=== PATIENT | female | born 1940 | race Caucasian/White ===

== ENCOUNTER → 2017-01-04 | Outpatient (CLI) | payer MEDICARE, OTHER ==
[~2017-01-04] MED LIST: AMLO10TA4 PO; BYSTOLIC2.5 MG PO; CALC600T11 PO; ESOM40CA PO; ESOM40CA25 PO; FLUT1DIS IH; FLUT1DIS3 IH; FOLI1TAB16 PO; IOHEXOL 180 MG/ML 10 ML VIAL. ONE; ISOS60TA2 PO; LIDO700A4 TP; LOSA100T6 PO; MELO15TA6 PO; PANT40TA5 PO; PROVENTIL HFA6.7 GM IH; SELE100T PO; VALS1TAB3 PO; VALS80TA3 PO; methylPREDNISolone ACETATE 40 MG/ML VIAL. ONE; methylPREDNISolone ACETATE 80 MG/ML VIAL. ONE
--- NOTE | 2017-01-05 01:35 | PN ---
DATE: 01/04/2017 DIAGNOSES: 1. Lumbar radiculopathy with lumbar degenerative disk disease. 2. Cervical radiculopathy with cervical degenerative disk disease. HISTORY OF PRESENT ILLNESS: The patient is a 76-year-old female who returns for followup, last seen on 08/23/2016. The patient has undergone 2 cervical epidural steroid injection, did very well with these, with about 50%-60% improvement. The patient reports that the pain in her neck is very tolerable at this point, her main complaint now is her low back pain. She has had this for some years, but has been getting much worse in the left leg with radiation into the anterior lateral thigh, posterior back, into the posterior gluteus, lateral gluteus, lateral thigh, medial lower leg into the area of the medial knee on the left side, mostly up in the anterior thigh and posterior low back. The patient reports it is 7-8 on a scale of 10 and describes it as "exhausting pain." The patient reports some dull aching, radiating, shooting pain in the left leg, worse with walking and standing, occasionally worse with sitting as well, but generally not awaken her from sleep at night. The patient had a recent abdominal CT to follow up on previous renal carcinoma, which was clear, but did diagnose some diverticulosis and patient has been taking antibiotics for this, finished this now, but had some significant diarrhea with the antibiotics. She is following up with her primary care physician who also encouraged her to consult or have a referral for a hr administrative assistant and this is long-term if she desires. The patient reports otherwise no new motor or sensory deficits, no new bowel or bladder incontinence or other complaints. PHYSICAL EXAMINATION: VITAL SIGNS: The patient's blood pressure is 140/68, pulse is 68, respirations 18, temperature 99.0 degrees Fahrenheit, height is 5 feet 2 inches, and weight is 182 pounds. GENERAL: The patient is awake, alert, oriented, appropriate, very pleasant demeanor. HEENT: Head shows normocephalic and atraumatic. Extraocular movements are intact and symmetrical. Oral cavity shows mucous membranes moist and pink. Dentition is intact. NECK: Shows anterior throat supple without palpable lymphadenopathy noted. Swallow reflex is symmetrical. Neck shows full rotational motion of cervical spine, both laterally greater than 45 degrees with full extension, full flexion without pain reported. CHEST: Shows normal on inspection. Breath sounds are clear to auscultation bilaterally. HEART: Shows S1 and S2 clear. No murmurs are auscultated. ABDOMEN: Obese, soft, nontender, and nondistended. No palpable organomegaly is noted. No rebound or guarding demonstrated. BACK: Shows spine grossly in midline, slight exaggeration of thoracic kyphosis and mild flattening of lumbar lordotic curvature. No previous bruises, lesions, rashes or scars are noted in the lumbar distribution. Paraspinous musculature shows symmetrical in appearance. With palpation, this is firm, some moderate tenderness with palpation, but only diffusely in the lower lumbar distribution. No tenderness over the spinous processes. No tenderness over the sacrum or sacroiliac regions. The patient shows good rotational motion of the lumbar spine, both laterally as well as extension and flexion without significant increase in pain. EXTREMITIES: Lower extremities show deep tendon reflexes 1+ in the patellar and tendo calcaneus tendons. Motor exam is strong with 5/5 dorsiflexion, extension and 4/5 with left quadriceps and hamstring flexion with 5/5 on the right. Peripheral pulses are 1+ posterior tibial and dorsalis pedis pulses. No peripheral edema is noted. Options were discussed with the patient and the patient's old chart was reviewed as her current medication regimen updated. Current review of systems updated today as well. We will proceed with a lumbar epidural steroid injection today with fluoroscopic guidance. Risks were again discussed including, but not limited to bleeding, infection, possibility of epidural hematoma, subsequent neurologic compromise, dural puncture, headaches, spinal cord and/or nerve damage, side effects of steroid medication and poor results regarding pain control. The patient understands and wishes to proceed. The patient will return to clinic in approximately 2 weeks for followup, counseled on return appointment, activity level and side effects to be aware of. Also, ____ patient is to ____ hr administrative assistant for her recent diverticulosis diagnosis and she will look into this and check with her primary physician for referral well. DIAGNOSIS: Lumbar radiculopathy with lumbar degenerative disease. PROCEDURE: Lumbar epidural steroid injection in translaminar approach at L4-L5 level using sterile fluoroscopic guidance and local anesthetic using a sterile prep and drape. MEDICATIONS INJECTED: Depo-Medrol 120 mg plus 10 mL of preservative-free normal saline and 2 mL of Isovue for contrast. The patient's condition on discharge is stable. The patient tolerated procedure well, had no complications. SHAYAN CHING MD DR: CE/reji JOB#: [id number] / [id number]
== END | disposition home or self-care (01) ==
LOC: PNCL 09:19
PROVIDERS: ATTEND Anesthesiology
DX: M51.16 Intervertebral disc disorders with radiculopathy, lumbar region (principal); M50.10 Cervical disc disorder with radiculopathy, unspecified cervical region
CPT/HCPCS: 62323; J1030; J1040; 62327

== ENCOUNTER → 2017-04-18 | Outpatient (CLI) | payer MEDICARE, OTHER ==
[~2017-04-18] MED LIST changes: -CALC600T11 PO; +CALC600T23 PO
--- NOTE | 2017-04-19 05:42 | PN ---
DATE: 04/18/2017 PROGRESS NOTE FOR PAIN CLINIC DIAGNOSES: 1. Cervical radiculopathy with cervical degenerative disk disease. 2. Lumbar radiculopathy with lumbar degenerative disk disease. HISTORY OF PRESENT ILLNESS: The patient is a 76-year-old female who returns for followup status post lumbar epidural steroid injection x 1 on 01/04/2017. The patient reports that she did fairly well, but only for a limited time about 2 weeks. The pain returned significantly in the low back and into the left posterior gluteus and lateral anterior thigh and groin on the left side. The patient reports her main complaint, however, is her neck and left upper back and shoulder. The patient has done well with cervical epidural steroid injections in the past and we had discussed this last time. The patient returns reporting significant pain in this region rated an 8 on a scale of 10 at its worst, is a 5 at its least. It is aching, tight and constant, becoming more and more noticeable with activities, but she was using her upper extremities, reaching above her head or any repetitive motions with her arms or shoulders. The patient reports no new motor or sensory deficits, no new bowel or bladder incontinence, but still significant pain is noted. PHYSICAL EXAMINATION: VITAL SIGNS: The patient's blood pressure is 142/66, pulse 57, respirations are 18, temperature is 97.5 degrees Fahrenheit, height is 5 feet 2 inches, weight is 183 pounds. GENERAL: The patient is awake, alert, oriented, appropriate, has a very pleasant demeanor. HEENT: Head shows normocephalic, atraumatic. Extraocular movements are intact, symmetrical. Oral cavity has mucous membranes moist and pink. Dentition is intact. NECK: Shows anterior throat supple without palpable lymphadenopathy noted. Swallow reflex is symmetrical. CHEST: Shows normal on inspection. Breath sounds are clear to auscultation bilaterally. HEART: Shows S1 and S2 clear. ABDOMEN: Soft, nontender, nondistended. No palpable organomegaly is noted. No rebound or guarding demonstrated. BACK: Shows spine grossly in the midline. Cervical paraspinous muscle shows symmetrical on inspection with moderate tenderness to palpation bilaterally in the cervical paraspinous musculature without radiation. This is superior, medial and lateral trapezius, more on the left than the right, but without specific trigger points or radiation, but just diffuse tenderness in the musculature. The patient's low back shows some moderate tenderness with palpation in the middle and lower distribution, but shows good rotational motion without significant pain with mild pain with extension of the lumbar spine, but not with forward flexion, right and left lateral rotation. EXTREMITIES: Upper extremities showed deep tendon reflexes at 2+ in the biceps and triceps tendons. Motor exam is strong with liner machine operator helper strength rated at 5/5 at his biceps and triceps flexion. Lower extremities showed deep tendon reflexes 1+ in the patellar and tendo calcaneus tendons. Motor exam is 5/5 at the ankles and 4/5 with the left quadriceps and 5/5 on the right. PLAN: Options were discussed with the patient and the patient's old chart was reviewed as her current medication regimen and updated. Current review of systems updated today as well. We will proceed with a cervical epidural steroid injection today with fluoroscopic guidance. Risks were again discussed including, but not limited to bleeding, infection, possibility of epidural hematoma, subsequent neurologic compromise, dural puncture, headaches, spinal cord and/or nerve damage, side effects of steroid medication and poor results regarding pain control. The patient understands and wishes to proceed. The patient will return to clinic in approximately 2 weeks for followup, was counseled on return appointment, activity level and side effects to be aware of. DIAGNOSES: Cervical radiculopathy with cervical degenerative disk disease. PROCEDURE: Cervical epidural steroid injection in translaminar approach at C6-C7 using C-arm fluoroscopic guidance under sterile prep and drape using a local anesthetic. Medications injected is 120 mg Depo-Medrol plus 5 mL of preservative-free normal saline and 2 mL Isovue for contrast. CONDITION AT DISCHARGE: Stable. The patient tolerated the procedure well, had no complications. SHAYAN CHING MD DR: CE/reji JOB#: [id number] / [id number]
== END | disposition home or self-care (01) ==
LOC: PNCL 10:10
PROVIDERS: ATTEND Anesthesiology
DX: M50.123 Cervical disc disorder at C6-C7 level with radiculopathy (principal); M51.16 Intervertebral disc disorders with radiculopathy, lumbar region; Z82.49 Family history of ischemic heart disease and other diseases of the circulatory system
CPT/HCPCS: 62321; J1030; J1040

== ENCOUNTER → 2017-06-30 | Outpatient (CLI) | payer MEDICARE, OTHER ==
[~2017-06-30] MED LIST changes: +GADOBUTROL 7.5 MMOL/7.5 ML VIAL IV ONE; -IOHEXOL 180 MG/ML 10 ML VIAL. ONE; -methylPREDNISolone ACETATE 40 MG/ML VIAL. ONE; -methylPREDNISolone ACETATE 80 MG/ML VIAL. ONE
--- NOTE | 2017-06-30 13:19 | RAD ---
MRI of the abdomen and pelvis without and with contrast 06/30/2017 Clinical history: History of left renal cell carcinoma post surgical removal. Possible pancreatic lesion seen on recent CT scan. Technique: Unenhanced T2-weighted axial, and fat-saturated T2-weighted axial and coronal and in and out of phase T1-weighted axial and coronal images of the abdomen were obtained. T1-weighted coronal axial and sagittal and fat saturated T2-weighted coronal and axial images of the pelvis were obtained. After the intravenous administration of 7.5 cc of Gadavist, enhanced fat saturated T1-weighted axial and coronal images of the abdomen and pelvis were obtained. Findings: Comparison is made to patient's CT scan of the abdomen and pelvis performed at [facility] on 06/24/2017. Several rounded high signal intensity lesions are seen involving predominantly the left lobe of the liver on the T2-weighted images. They measure 2 to 3 mm in size. There are consistent with hepatic cysts. The spleen and adrenal glands are within normal limits. A 6 mm rounded high signal intensity lesion is seen involving the lower pole right kidney on the T2-weighted images. This likely represents a cyst. The patient is post resection of a portion of the lateral aspect of the left kidney. No recurrent/residual mass is seen. The pancreas is within normal limits. No significant focal abnormality of the pancreas is seen. The low-attenuation lesions in the patient's CT scan likely represent small areas of focal fatty replacement. The abdominal aorta is ectatic. A hernia is seen along the left lateral anterior abdominal wall, unchanged. The gallbladder is well-distended. No free fluid is seen within the abdomen. There is no evidence of bowel obstruction. The urinary bladder is distended with urine. The uterus is within normal limits. Multiple diverticula are seen along the sigmoid colon. No free fluid is seen. No pelvic or inguinal lymphadenopathy is seen. Mild S-shaped curvature of the thoracolumbar spine is seen. No area of abnormal contrast enhancement is seen. Impression: 1. No recurrent mass is seen within the left kidney. 2. No significant abnormality is seen involving the pancreas. The low-attenuation lesions seen on the patient's recent CT scan involving the pancreas are felt to most likely represent areas of fatty infiltration. 3. No acute abnormality is seen involving the pelvis.
== END | disposition home or self-care (01) ==
LOC: MRI 07:42
PROVIDERS: ATTEND General Practice
DX: K86.9 Disease of pancreas, unspecified (principal); K45.8 Other specified abdominal hernia without obstruction or gangrene
CPT/HCPCS: 72197; 74183; A9585

== ENCOUNTER → 2017-10-19 | Outpatient (CLI) | payer MEDICARE, OTHER ==
[~2017-10-19] MED LIST changes: -GADOBUTROL 7.5 MMOL/7.5 ML VIAL IV ONE; +IOHEXOL 180 MG/ML 10 ML VIAL. ONE; +MELO7.5T29 PO; +methylPREDNISolone ACETATE 40 MG/ML VIAL. ONE; +methylPREDNISolone ACETATE 80 MG/ML VIAL. ONE
--- NOTE | 2017-10-19 18:41 | PAIN ---
DATE OF SERVICE: 10/19/2017 DIAGNOSES: 1. Lumbar radiculopathy with lumbar degenerative disk disease. 2. Cervical radiculopathy with cervical degenerative disk disease. HISTORY OF PRESENT ILLNESS: The patient is a 77-year-old female who returns for a followup, last seen on 04/18/2017, had a cervical epidural steroid injection and lumbar epidural steroid injection prior to that in December of this year. The patient did very well with each of these, reports about 75% improvement overall. Pain is beginning to return now in her low back and into her left leg, but only to a moderate extent. The patient reports it has been increasing gradually over time, not a result of any specific new injury or action that she is aware of, but has becoming more noticeable across the low back, into the posterior gluteus bilaterally, posterior thighs and left posterior thigh and posterior calf on occasion; worse with walking, standing, changing positions; better with sitting or lying down, but awakens her from sleep occasionally, but not every night. She usually sleeps about 8 hours at a time without difficulty, sometimes longer. The patient reports the pain is at 8 on a scale of 10 in her low back and left leg, is a 7 on average and a 3-4 at its least and is a 5 today. The patient reports it is aching, tight, becoming more shooting, dull, radiating; again worse with walking, standing, changing positions; better with sitting or lying down. The patient reports no new motor or sensory deficits. The patient's neck and upper shoulder is doing much better since her injection back in March of this year and reports that it is doing quite well. The patient reports no other complaints, no new motor or sensory deficits, bowel or bladder incontinence. PHYSICAL EXAMINATION: VITAL SIGNS: The patient's blood pressure 151/69, pulse 63, respirations are 16, temperature is 97.9 degrees Fahrenheit. She is 5 feet 2 inches, weighs 187 pounds. GENERAL: The patient is awake, alert, oriented, appropriate, very pleasant demeanor. HEENT: Shows normocephalic, atraumatic. Extraocular muscles are intact and symmetrical. Oral cavity shows mucous membranes moist and pink. Dentition is intact. NECK: Shows anterior throat supple without palpable lymphadenopathy noted. Swallow reflex is symmetrical. CHEST: Normal with inspection. Breath sounds clear to auscultation bilaterally. HEART: Shows S1, S2 clear. No murmurs auscultated. ABDOMEN: Obese, but soft, nontender, nondistended. No palpable organomegaly is noted. No rebound or guarding demonstrated. MUSCULOSKELETAL: Back shows spine grossly in the midline. Normal appearing thoracic kyphosis and some mild flattening of the lumbar lordotic curvature. Lumbar paraspinous muscle shows symmetrical on inspection. No difficulty with palpation in the upper aspect, lower aspect is moderately tender with palpation bilaterally in the lumbar paraspinous muscles, slightly worse on the left than the right. No tenderness over the sacrum or sacroiliac regions. Lower extremities show deep tendon reflexes at 1+ in the patellar and tendo-calcaneus tendons and are equal. Motor exam is strong with approximately 4 on a scale of 5 with dorsiflexion, extension on the left and 5/5 on the right. Peripheral pulses are 1+, posterior tibial. No peripheral edema is noted. No clubbing or cyanosis bilaterally. PLAN: Options were discussed with the patient. The patient's old chart was reviewed as her current medication regimen and updated. Current review of systems updated today as well. We will proceed with a lumbar epidural steroid injection today; it is the first in this series with fluoroscopic guidance. Risks were again discussed including, but not limited to bleeding, infection, possibility of epidural hematoma and subsequent neurological compromise, dural puncture headaches, spinal cord and/or nerve damage, side effects of steroid medication and poor results regarding pain control. The patient understands and wished to proceed. The patient to return to the clinic in approximately 2 weeks for a followup, was counseled on return appointment, activity level and side effects to be aware of. DIAGNOSES: 1. Lumbar radiculopathy with lumbar degenerative disk disease. 2. Cervical radiculopathy with cervical degenerative disk disease. PROCEDURE: Lumbar epidural steroid injection, translaminar approach, L4-L5 level using C-arm fluoroscopic guidance under sterile prep and drape using local anesthetic. MEDICATIONS INJECTED: A total of 120 mg of Depo-Medrol plus 10 mL of preservative-free normal saline and 2 mL of Isovue for contrast. CONDITION AT DISCHARGE: Stable. The patient tolerated the procedure well, had no complications. SHAYAN CHING MD DR: CE/reji JOB#: [id number] / [id number]
== END | disposition home or self-care (01) ==
LOC: PNCL 09:37
PROVIDERS: ATTEND Anesthesiology
DX: M51.16 Intervertebral disc disorders with radiculopathy, lumbar region (principal); M50.10 Cervical disc disorder with radiculopathy, unspecified cervical region
CPT/HCPCS: 62323; J1030; J1040

== ENCOUNTER → 2018-10-17 | Outpatient (CLI) | payer MEDICARE, OTHER ==
[~2018-10-17] MED LIST changes: +LOSA100T14 PO; -LOSA100T6 PO
--- NOTE | 2018-10-17 13:33 | PAIN ---
DATE OF SERVICE: 10/17/2018 PROGRESS NOTE FOR PAIN CLINIC DIAGNOSES: 1. Lumbar radiculopathy with lumbar degenerative disk disease. 2. Cervical radiculopathy with cervical degenerative disk disease. HISTORY OF PRESENT ILLNESS: The patient is a 78-year-old female who returns for followup status post lumbar epidural steroid injection x 1 on 07/10/2018. The patient did quite well with this with about a 60% improvement until about 2 weeks ago. The patient reports the pain began to return, was increased in the low back into the left greater than right lower extremity, mostly in the posterior gluteus, posterior thigh, lateral thigh, lateral anterior thigh, medial thigh, medial knee on the left side, worse with walking, standing, changing positions, worse with activity. Initially, she was increasing her activity with greater ease and comfort, walking greater distances, doing work activities, household activities, sleeping well at night. The patient reports it is beginning to awaken her from sleep occasionally, but not every night. The patient reports the pain is aching, tight across the low back into the posterior left lower extremity and hip as described. The patient reports it is a 9 on a scale of 10 at its worst and average, at 8 on its least and is a 9 today. The patient reports no new motor or sensory deficits, no new bowel or bladder incontinence or other complaints. PHYSICAL EXAMINATION: VITAL SIGNS: The patient's blood pressure is 161/76, pulse 66, respirations 18, temperature 98.1 degrees Fahrenheit, height is 5 feet 2 inches, weight is 192 pounds. GENERAL: The patient is awake, alert, oriented, appropriate, very pleasant demeanor. HEENT: Head shows normocephalic, atraumatic. Extraocular movements are intact and symmetrical. Oral cavity: Mucous membranes are moist and pink. Dentition is intact. NECK: Shows anterior throat supple without palpable lymphadenopathy noted. Swallow reflex is symmetrical. CHEST: Shows normal on inspection. Breath sounds are clear to auscultation bilaterally. HEART: Shows S1, S2 clear. No murmurs auscultated. ABDOMEN: Soft, nontender, nondistended. No palpable organomegaly is noted. No rebound or guarding demonstrated. BACK: Shows spine grossly in the midline. Normal appearing thoracic kyphosis and some minor flattening of lumbar lordotic curvature. Lumbar paraspinous muscle shows symmetrical on inspection, on palpation shows some moderate tenderness bilaterally, but only diffusely without radiation. EXTREMITIES: Lower extremities show deep tendon reflexes 1+ in the patellar and tendo-calcaneus tendons. Motor exam is approximately 4 on a scale of 5 on the left with dorsiflexion and extension, and 5/5 on the right, but equal and symmetrical right and left sides with quadriceps and hamstring flexion. Peripheral pulses are 1+ posterior tibia. No peripheral edema is noted bilaterally. Options were discussed with the patient. The patient's old chart was reviewed as her current medication regimen updated. Current review of systems updated today as well. We will proceed with a second in the series of lumbar epidural steroid injection today with fluoroscopic guidance. Risks were again discussed including, but not limited to bleeding, infection, possibility of epidural hematoma, subsequent neurological compromise, dural puncture, headaches, spinal cord and/or nerve damage, side effects of steroid medication and poor results regarding pain control. The patient understands and wished to proceed. The patient will return to clinic in approximately 2 weeks for followup, was counseled on return appointment, activity level and side effects to be aware of. DIAGNOSIS: Lumbar radiculopathy with lumbar degenerative disk disease. PROCEDURE: Lumbar epidural steroid injection in translaminar approach at L4-L5 level using C-arm fluoroscopic guidance under sterile prep and drape using local anesthetic. MEDICATION INJECTED: A total of 120 mg Depo-Medrol plus 10 mL of preservative-free normal saline and 2 mL of Isovue for contrast. CONDITION AT DISCHARGE: Stable. The patient tolerated the procedure well, had no complications. SHAYAN CHING MD DR: CE/reji JOB#: [id number] / [id number]
== END ==
LOC: PNCL 10:37
PROVIDERS: ATTEND Anesthesiology
DX: M51.16 Intervertebral disc disorders with radiculopathy, lumbar region (principal); M50.10 Cervical disc disorder with radiculopathy, unspecified cervical region
CPT/HCPCS: 62323; J1030; J1040; Q9965

== ENCOUNTER → 2018-11-06 | Outpatient (CLI) | payer MEDICARE, OTHER ==
[~2018-11-06] MED LIST changes: +ALBU2.5V8 IH; -IOHEXOL 180 MG/ML 10 ML VIAL. ONE; +LOSA-73 PO; +NAPR220C4 PO; -PROVENTIL HFA6.7 GM IH; -methylPREDNISolone ACETATE 40 MG/ML VIAL. ONE; -methylPREDNISolone ACETATE 80 MG/ML VIAL. ONE
--- NOTE | 2018-11-06 23:27 | PAIN ---
DATE OF SERVICE: 11/06/2018 PROGRESS NOTE FOR PAIN CLINIC DIAGNOSES: 1. Cervical radiculopathy with cervical degenerative disk disease. 2. Lumbar radiculopathy with lumbar degenerative disk disease. HISTORY OF PRESENT ILLNESS: The patient is a 78-year-old female who returns for followup status post lumbar epidural steroid injection x 2, on 07/10 and then on 10/17/2018. The patient did very well with about a 70% improvement. Reports still 70% improvement in the low back and left lower extremity. The patient reports the pain in her leg is not completely gone, just some pain across the low back, which she reports is very tolerable. The patient reports she is increasing her activity, greater distance walking, able to return to activities at home as well as household activities and traveling with much greater ease and comfort. The patient is sleeping well at night, does not awaken her from sleep at night. The patient reports her pain is 0-1 at its worst, average and at its least is a 0 and is a 0 today. The patient reports much better with sitting, but worse with standing and walking for more than about 15-30 minutes. Otherwise, the patient is doing quite well. The patient reports again no pain in the left leg, has resolved since her last visit. The patient reports no new motor or sensory deficits, no new bowel or bladder incontinence or other complaints. PHYSICAL EXAMINATION: VITAL SIGNS: The patient's blood pressure is 149/56, pulse 55, respirations 16, temperature 98.0 degrees Fahrenheit, height is 5 feet 2 inches, weight is 191 pounds. GENERAL: The patient is awake, alert, oriented, appropriate, very pleasant demeanor. HEENT: Shows normocephalic, atraumatic. Extraocular movements are intact and symmetrical. The patient wears eye glasses. Oral cavity: Mucous membranes are moist and pink. Dentition is intact. NECK: Shows anterior throat supple without palpable lymphadenopathy noted. Swallow reflex is symmetrical. CHEST: Shows normal on inspection. Breath sounds are clear to auscultation bilaterally. HEART: Shows S1, S2 clear. No murmurs auscultated. ABDOMEN: Soft, nontender, nondistended. No palpable organomegaly is noted. No rebound or guarding demonstrated. BACK: Shows spine grossly in the midline. Slight exaggeration of thoracic kyphosis and some minor flattening of lumbar lordotic curvature. Lumbar paraspinous muscle shows symmetrical on inspection, with palpation shows some moderate tenderness diffusely bilaterally, but only diffusely without radiation and without trigger points. The patient has good rotational motion of lumbar spine, both laterally greater than 10 degrees right and left as well as extension greater than 10 degrees, forward flexion 45 degrees without significant pain reported. EXTREMITIES: Lower extremities show deep tendon reflexes 1+ in the patellar and tendo calcaneus tendons, are equal. Motor exam is approximately 4 on a scale of 5 with left dorsiflexion and extension, and 5/5 on the right, but intact. Peripheral pulses are 1+ posterior tibia. No peripheral edema is noted bilaterally. Options were discussed with the patient and the patient's who accompanies her to this visit today. Her old chart was reviewed as is her current medication regimen updated and current review of systems updated today as well. We will hold on any further injections at this time as the patient is doing quite a bit better and thus we would like to hold on any further intervention. The patient is taking Aleve twice daily. Reports, she did quite well with this without side effects. The patient was encouraged to increase her activity as tolerated, walking greater distances as tolerated as well with caution with bending, flexing, stooping with the low back. Otherwise, the patient will follow up on an as needed basis at this time. SHAYAN CHING MD DR: CE/reji JOB#: [id number] / [id number] Dimple Martel MD
== END | disposition home or self-care (01) ==
LOC: PNCL 09:24
PROVIDERS: ATTEND Anesthesiology
DX: M50.10 Cervical disc disorder with radiculopathy, unspecified cervical region (principal); M51.16 Intervertebral disc disorders with radiculopathy, lumbar region
CPT/HCPCS: G0463